=== PATIENT | female | born 1965 | race Caucasian/White ===

== ENCOUNTER 2017-09-18 09:53 | Emergency (ER) | payer MEDICAID, OTHER ==
[~2017-09-18] VITALS: Ht 162.6 cm; Wt 65.8 kg
[2017-09-18 11:10] VITALS: BP 138/89
[2017-09-18] MEDS ORDERED: traMADol HCL 50 MG TAB PO ONE (11:30)
== END 2017-09-18 12:05 | disposition home or self-care (01) ==
LOC: ER 09:53
DX: S52.592A Other fractures of lower end of left radius, initial encounter for closed fracture (principal); Z88.8 Allergy status to other drugs, medicaments and biological substances; Z88.6 Allergy status to analgesic agent; W01.198A Fall on same level from slipping, tripping and stumbling with subsequent striking against other object, initial encounter; Y93.89 Activity, other specified; Y99.8 Other external cause status; Y92.89 Other specified places as the place of occurrence of the external cause
CPT/HCPCS: 29125; 73110

== ENCOUNTER 2019-10-26 01:15 | Emergency (ER) | payer MEDICAID ==
[~2019-10-26] VITALS: Ht 157.5 cm; Wt 68.0 kg
[2019-10-26 02:19] VITALS: BP 146/88
[2019-10-26] MEDS ORDERED: cefTRIAXone SOD 1,000 MG VL IM ONE (02:30)
[2019-10-26] MEDS ORDERED: AZITHROMYCIN 250 MG TAB PO ONE (02:30)
[2019-10-26] MEDS ORDERED: KETOROLAC TROMETH 60MG/2ML VIAL IM ONE (02:30)
== END 2019-10-26 03:00 | disposition home or self-care (01) ==
LOC: ER 01:18
DX: H10.33 Unspecified acute conjunctivitis, bilateral (principal); Z88.6 Allergy status to analgesic agent; Z88.5 Allergy status to narcotic agent
CPT/HCPCS: 96372; 99284; J0696; J1885

== ENCOUNTER 2021-02-10 05:49 | Inpatient (IN) | payer MEDICAID ==
[~2021-02-10] VITALS: Ht 157.5 cm; Wt 85.9 kg
[2021-02-10] MEDS ORDERED: DexAMETHasone SOD PHOS 10MG/1ML VIAL INJ IV ONE (07:00)
[2021-02-10] MEDS ORDERED: cefTRIAXone 1GM/50ML D5W 50 ML IV ONE (07:00)
[2021-02-10] MEDS ORDERED: AZITHROMYCIN 500MG/ 250ML 250 ML IV ONE (07:00)
[2021-02-10 07:04] LABS: Basophils # (auto) 0 10 ^3/uL (0-0.2); Basophils % (auto) 0.4 % (0.0-2.0); Eosinophils # (auto) 0 10 ^3/uL (0-0.8); Eosinophils % (auto) 0.3 % (0.0-7.0); Hematocrit 40.5 % (36.0-46.0); Lymphocytes # (auto) 0.6 10 ^3/uL (0.4-5.4); Lymphocytes % (auto) 10.8 % (10.0-50.0); Mean Corpuscular Hemoglobin 29.5 pg (28.0-32.0); Mean Corpuscular Hgb Conc. 34.5 g/dL (32.0-36.0); Mean Corpuscular Volume 85.4 fL (80.0-100.0); Monocytes # (auto) 0.3 10 ^3/uL (0-1.3); Monocytes % (auto) 5.4 % (0.0-12.0); Neutrophils # (auto) 4.7 10 ^3/uL (1.6-8.6); Neutrophils % (auto) 83.1 % (37.0-80.0); Red Blood Cells 4.74 10^6/uL (4.0-5.20); Red Cell Distribution Width 12.8 % (11.8-14.3); White Blood Cell 5.7 10^3/uL (4.4-10.8)
[2021-02-10 07:19] LABS: Calcium 8.9 mg/dL (8.5-10.1); Potassium 4.4 mmol/L (3.5-5.1)
[2021-02-10 07:35] LABS: BUN/Creatinine Ratio 14.3; Bilirubin, Total 0.9 mg/dL (0.2-1.0); Total Protein 8.1 g/dL (6.4-8.2)
[2021-02-10 08:27] LABS: Urine Bacteria FEW /hpf (None Seen); Urine Blood 2+ /uL (Negative); Urine Mucus FEW (None Seen); Urine Specific Gravity 1.024 (1.001-1.035); Urine WBC 7 /hpf (0 - 5)
[2021-02-10 08:44] LABS: Amphetamine Screen, Urine POSITIVE (NEGATIVE); Barbiturate Scree,Urine NEGATIVE (NEGATIVE); Benzodiazephine Screen, Urine NEGATIVE (NEGATIVE); Cannabinoid Screen, Urine NEGATIVE (NEGATIVE); Cocaine Screen, Urine NEGATIVE (NEGATIVE); Opiate Scree,Urine POSITIVE (NEGATIVE); Phencyclidine Screen, Urine NEGATIVE (NEGATIVE)
[2021-02-10] MEDS ORDERED: PROMETHAZINE HCL 25 MG/ML 1ML IV PRN (10:15)
[2021-02-10] MEDS ORDERED: MORPHINE SULFATE INJECTION 2 MG/ML SYRG IV PRN ×2 (10:15→16:30)
[2021-02-10] MEDS ORDERED: NITROGLYCERIN 0.4 MG SL TAB SL PRN (10:15)
[2021-02-10] MEDS: PIPERACILLIN-TAZOB 3.375GM 100 ML IV SCH ×2 (12:09→18:03)
[2021-02-10] MEDS: HYDROcodone-ACET 5/325MG TAB PO PRN ×2 (16:50→21:21)
[2021-02-10] MEDS: FUROSEMIDE 20 MG/2 ML VIAL IV SCH (18:03)
[2021-02-10 20:15] VITALS: BP 110/72
[2021-02-10] MEDS: POTASSIUM CHL 10 Meq TABLET PO SCH (21:20)
[2021-02-10 22:00] VITALS: BP 110/72
[2021-02-11] MEDS: PIPERACILLIN-TAZOB 3.375GM 100 ML IV SCH ×4 (02:36→17:37)
[2021-02-11 05:00] VITALS: BP 120/74
[2021-02-11] MEDS: ACETAMINOPHEN 325 MG TAB PO PRN ×2 (05:35→22:43)
[2021-02-11 06:42] LABS: Potassium 3.8 mmol/L (3.5-5.1)
[2021-02-11 06:51] LABS: BUN/Creatinine Ratio 25.8; Calcium 9.1 mg/dL (8.5-10.1)
[2021-02-11] MEDS: FUROSEMIDE 20 MG/2 ML VIAL IV SCH ×2 (07:04→17:37)
[2021-02-11 09:00] VITALS: BP 121/73
[2021-02-11] MEDS: FAMOTIDINE 20 MG TAB PO SCH (09:24)
[2021-02-11] MEDS: POTASSIUM CHL 10 Meq TABLET PO SCH ×2 (09:24→22:42)
[2021-02-11] MEDS: ENOXAPARIN SOD 40 MG/0.4 ML SYRINGE SC SCH (09:24)
[2021-02-11 13:00] VITALS: BP 124/72
[2021-02-11] MEDS ORDERED: REMDESIVIR PER PHARMACY 0 ML IV SCH (16:15)
[2021-02-11 16:35] LABS: Bilirubin, Direct 0.4 mg/dL (0-0.2)
[2021-02-11 16:37] LABS: Bilirubin, Total 0.7 mg/dL (0.2-1.0); Total Protein 7.2 g/dL (6.4-8.2)
[2021-02-11] MEDS ORDERED: IOHEXOL 350 MG/ML 100ML IJ ONE (16:41)
[2021-02-11 17:00] VITALS: BP 103/68
[2021-02-11] MEDS: Ensure HIGH Protein Chocolate 8oz Bottle PO SCH (18:00)
[2021-02-11 22:00] VITALS: BP 109/62
[2021-02-11] MEDS: ALBUTEROL SULF HFA 90MCG INH 200DOSE IN SCH (22:00)
[2021-02-11] MEDS: methylPREDNISolone SOD SUCC 40 MG/ML VL IV SCH (22:42)
[2021-02-12] MEDS: PIPERACILLIN-TAZOB 3.375GM 100 ML IV SCH ×4 (00:31→17:49)
[2021-02-12 05:00] VITALS: BP 94/57
[2021-02-12] MEDS: FUROSEMIDE 20 MG/2 ML VIAL IV SCH (05:45)
[2021-02-12] MEDS: ALBUTEROL SULF HFA 90MCG INH 200DOSE IN SCH ×2 (06:10→22:00)
[2021-02-12] MEDS: methylPREDNISolone SOD SUCC 40 MG/ML VL IV SCH ×3 (06:10→21:09)
[2021-02-12 08:47] VITALS: BP 108/69
[2021-02-12] MEDS: FAMOTIDINE 20 MG TAB PO SCH (08:47)
[2021-02-12] MEDS: POTASSIUM CHL 10 Meq TABLET PO SCH (08:48)
[2021-02-12] MEDS: Ensure HIGH Protein Chocolate 8oz Bottle PO SCH ×2 (08:48→17:49)
[2021-02-12] MEDS: ENOXAPARIN SOD 40 MG/0.4 ML SYRINGE SC SCH (08:48)
[2021-02-12 11:45] LABS: Albumin 2.9 g/dL (3.4-5.0); Calcium 9.2 mg/dL (8.5-10.1); Potassium 3.8 mmol/L (3.5-5.1)
[2021-02-12 11:50] LABS: BUN/Creatinine Ratio 26.3; Bilirubin, Total 0.5 mg/dL (0.2-1.0); Total Protein 7.6 g/dL (6.4-8.2)
[2021-02-12 13:00] VITALS: BP 117/64
[2021-02-12] MEDS ORDERED: REMDESIVIR 200 MG in NS 210ml LOADING DOSE ADULT IV ONE (15:00)
[2021-02-12 17:00] VITALS: BP 120/65
[2021-02-12] MEDS: HYDROcodone-ACET 5/325MG TAB PO PRN (20:37)
[2021-02-12 22:00] VITALS: BP 114/67
[2021-02-13] MEDS: PIPERACILLIN-TAZOB 3.375GM 100 ML IV SCH ×4 (00:28→18:00)
[2021-02-13 05:00] VITALS: BP 114/77
[2021-02-13] MEDS: methylPREDNISolone SOD SUCC 40 MG/ML VL IV SCH ×3 (06:08→21:28)
[2021-02-13] MEDS: HYDROcodone-ACET 5/325MG TAB PO PRN ×3 (06:11→20:53)
[2021-02-13] MEDS: ALBUTEROL SULF HFA 90MCG INH 200DOSE IN SCH ×3 (06:11→20:44)
[2021-02-13 06:35] LABS: Basophils # (auto) 0 10 ^3/uL (0-0.2); Basophils % (auto) 0.1 % (0.0-2.0); Eosinophils # (auto) 0 10 ^3/uL (0-0.8); Hematocrit 38.2 % (36.0-46.0); Hemoglobin 13.3 g/dL (12.2-16.2); Lymphocytes # (auto) 0.9 10 ^3/uL (0.4-5.4); Lymphocytes % (auto) 11.2 % (10.0-50.0); Mean Corpuscular Hemoglobin 29.3 pg (28.0-32.0); Mean Corpuscular Hgb Conc. 34.8 g/dL (32.0-36.0); Mean Corpuscular Volume 84.1 fL (80.0-100.0); Monocytes # (auto) 0.5 10 ^3/uL (0-1.3); Monocytes % (auto) 6.9 % (0.0-12.0); Neutrophils # (auto) 6.5 10 ^3/uL (1.6-8.6); Neutrophils % (auto) 81.8 % (37.0-80.0); Nucleated Red Blood Cells % 0.1 %; Red Blood Cells 4.54 10^6/uL (4.0-5.20); Red Cell Distribution Width 12.5 % (11.8-14.3); White Blood Cell 7.9 10^3/uL (4.4-10.8)
[2021-02-13 06:45] LABS: Albumin 2.7 g/dL (3.4-5.0); Calcium 8.8 mg/dL (8.5-10.1); Potassium 4.4 mmol/L (3.5-5.1)
[2021-02-13 06:48] LABS: BUN/Creatinine Ratio 26.5; Bilirubin, Total 0.4 mg/dL (0.2-1.0); Total Protein 6.5 g/dL (6.4-8.2)
[2021-02-13] MEDS: Ensure HIGH Protein Chocolate 8oz Bottle PO SCH ×2 (08:00→18:00)
[2021-02-13 08:30] VITALS: BP 104/66
[2021-02-13] MEDS: FAMOTIDINE 20 MG TAB PO SCH (09:28)
[2021-02-13] MEDS: POTASSIUM CHL 10 Meq TABLET PO SCH (09:29)
[2021-02-13] MEDS: FUROSEMIDE 20 MG/2 ML VIAL IV SCH (09:30)
[2021-02-13] MEDS: ENOXAPARIN SOD 40 MG/0.4 ML SYRINGE SC SCH (09:30)
[2021-02-13 13:00] VITALS: BP 108/69
[2021-02-13] MEDS: REMDESIVIR 100mg 100 MG in SODIUM CHL 0.9% 230 ML IV SCH (14:28)
[2021-02-13 16:42] VITALS: BP 129/94
[2021-02-13 20:00] VITALS: BP 99/50
[2021-02-13 22:30] VITALS: BP 99/50
[2021-02-14] MEDS: PIPERACILLIN-TAZOB 3.375GM 100 ML IV SCH ×5 (01:36→23:08)
[2021-02-14 05:00] VITALS: BP 119/70
[2021-02-14] MEDS: HYDROcodone-ACET 5/325MG TAB PO PRN ×3 (05:18→23:09)
[2021-02-14] MEDS: methylPREDNISolone SOD SUCC 40 MG/ML VL IV SCH ×3 (06:06→23:08)
[2021-02-14] MEDS: ALBUTEROL SULF HFA 90MCG INH 200DOSE IN SCH ×3 (06:45→22:30)
[2021-02-14 07:17] LABS: Albumin 2.7 g/dL (3.4-5.0); Potassium 4.6 mmol/L (3.5-5.1)
[2021-02-14 07:26] LABS: BUN/Creatinine Ratio 28.8; Bilirubin, Total 0.4 mg/dL (0.2-1.0); Total Protein 6.1 g/dL (6.4-8.2)
[2021-02-14] MEDS: ENOXAPARIN SOD 40 MG/0.4 ML SYRINGE SC SCH (08:14)
[2021-02-14] MEDS: POTASSIUM CHL 10 Meq TABLET PO SCH (08:14)
[2021-02-14] MEDS: FUROSEMIDE 20 MG/2 ML VIAL IV SCH (08:15)
[2021-02-14] MEDS: Ensure HIGH Protein Chocolate 8oz Bottle PO SCH ×2 (08:15→18:02)
[2021-02-14] MEDS: FAMOTIDINE 20 MG TAB PO SCH (08:15)
[2021-02-14 09:53] VITALS: BP 111/70
[2021-02-14] MEDS: REMDESIVIR 100mg 100 MG in SODIUM CHL 0.9% 230 ML IV SCH (16:26)
[2021-02-14] MEDS ORDERED: FAMO20TA10 PO (17:30)
[2021-02-14] MEDS ORDERED: DEX4T PO (17:30)
[2021-02-14] MEDS ORDERED: ALBU108A5 IN (17:30)
[2021-02-14] MEDS ORDERED: AMOX500T86 PO (17:30)
[2021-02-14 17:52] VITALS: BP 107/78
[2021-02-14] MEDS: ACETAMINOPHEN 325 MG TAB PO PRN (20:10)
[2021-02-14 22:00] VITALS: BP 118/65
[2021-02-15 05:00] VITALS: BP 95/60
[2021-02-15] MEDS: PIPERACILLIN-TAZOB 3.375GM 100 ML IV SCH ×2 (05:23→12:00)
[2021-02-15] MEDS: methylPREDNISolone SOD SUCC 40 MG/ML VL IV SCH ×2 (05:23→14:00)
[2021-02-15] MEDS ORDERED: ALBUTEROL SULF HFA 90MCG INH 200DOSE IN PRN (05:30)
[2021-02-15 06:21] LABS: Albumin 2.8 g/dL (3.4-5.0); BUN/Creatinine Ratio 26.9; Potassium 5.1 mmol/L (3.5-5.1)
[2021-02-15 06:24] LABS: Bilirubin, Total 0.3 mg/dL (0.2-1.0); Total Protein 6.2 g/dL (6.4-8.2)
[2021-02-15 09:00] VITALS: BP 112/67
[2021-02-15] MEDS: Ensure HIGH Protein Chocolate 8oz Bottle PO SCH (09:32)
[2021-02-15] MEDS: FAMOTIDINE 20 MG TAB PO SCH (09:33)
[2021-02-15] MEDS: ENOXAPARIN SOD 40 MG/0.4 ML SYRINGE SC SCH (09:33)
[2021-02-15] MEDS: HYDROcodone-ACET 5/325MG TAB PO PRN (09:45)
[2021-02-15 11:42] VITALS: BP 112/67
[2021-02-15 13:00] VITALS: BP 120/80
== END 2021-02-15 15:33 | disposition home or self-care (01) | DRG 137 ==
LOC: EDBD 05:49 → ER 05:49 → OVERFLOW 10:14 → EAST 20:15
PROVIDERS: ADMIT Hospitalist; ATTEND Hospitalist
PROC: XW033E5 Introduction of Remdesivir Anti-infective into Peripheral Vein, Percutaneous Approach, New Technology Group 5 (ICD-10-PCS; principal; 2021-02-11)
DX: U07.1 COVID-19 (principal); J96.00 Acute respiratory failure, unspecified whether with hypoxia or hypercapnia; J12.82 Pneumonia due to coronavirus disease 2019; J44.0 Chronic obstructive pulmonary disease with (acute) lower respiratory infection; J44.1 Chronic obstructive pulmonary disease with (acute) exacerbation; F15.20 Other stimulant dependence, uncomplicated; N39.0 Urinary tract infection, site not specified; Z98.51 Tubal ligation status
CPT/HCPCS: 36415; 71045; 71275; 80048; 80053; 80076; 80307; 81001; 82728; 83880; 84484; 85025; 85379; 86141; 87426; 93005; 93306; 94640; 96365; 96366; 96367; 96368; 96375; 97110; 97116; 97530; 99291; G0378; J0696; J1100; J2543